=== PATIENT | female | born 1960 | race Hispanic/Latino ===

== ENCOUNTER → 2018-04-29 | Outpatient (CLI) | payer OTHER | END | disposition home or self-care (01) | LOC: SHCH 09:52 | PROVIDERS: ATTEND Internal Medicine Cardiovascular Disease | DX: R07.9 Chest pain, unspecified (principal); R43.9 Unspecified disturbances of smell and taste | CPT/HCPCS: 93306 ==

== ENCOUNTER 2023-12-19 14:34 | Inpatient (IN) | payer OTHER ==
[~2023-12-19] VITALS: Ht 160 cm; Wt 61.0 kg
[2023-12-19 17:56] LABS: BASOPHILS # (AUTO) 0.03 K/uL (0.00-0.20); BASOPHILS % (AUTO) 0.4 % (0.0-5.0); HEMATOCRIT 40.7 % (36-48); IMMATURE GRANULOCYTE ABSOLUTE 0.02 K/uL (0-1); LYMPHOCYTES # (AUTO) 1.3 K/uL (1.0-4.8); LYMPHOCYTES % (AUTO) 16.9 % (21.0-51.0); MEAN CORPUSCULAR HEMOGLOBIN 29.6 pg (27.0-33.0); MEAN CORPUSCULAR HGB CONC 34.6 g/dL (32.0-36.0); MEAN CORPUSCULAR VOLUME 85.5 fL (79-99); MONOCYTES # (AUTO) 0.3 K/uL (0.1-1.0); MONOCYTES % (AUTO) 3.9 % (3.0-13.0); NEUTROPHILS # (AUTO) 6.3 K/uL (1.8-7.7); NEUTROPHILS % (AUTO) 78.5 % (40.0-77.0); PLATELET COUNT (AUTO) 170 K/uL (130-400); RED BLOOD CELL COUNT(AUTO) 4.76 MIL/uL (4.00-5.50)
[2023-12-19 18:07] LABS: POTASSIUM 3.6 mmol/L (3.5-5.1)
[2023-12-19 18:09] LABS: INR 0.95 (0.85-1.15); PROTHROMBIN TIME 11.1 SEC (9.6-11.6)
[2023-12-19 18:10] LABS: PARTIAL THROMBOPLASTIN TIME 33.6 SEC (26.3-35.5)
[2023-12-19] MEDS: 0.9%NACL 1000ML 1,503 ML IV ONE (18:11)
[2023-12-19] MEDS: ACETAMINOPHEN 325 MG TAB PO ONE (18:12)
[2023-12-19 18:19] LABS: ALBUMIN 3.1 g/dL (3.5-5.0); BILIRUBIN,TOTAL 1.3 mg/dL (0.2-1.0); TOTAL PROTEIN, SERUM 7.9 g/dL (6.0-8.3)
[2023-12-19] MEDS: CEFTRIAXONE 2GM VIAL IVPB ONE (18:41)
[2023-12-19] MEDS ORDERED: MORPHINE 4 MG SYG IV PRN (19:30)
[2023-12-19] MEDS ORDERED: KCL 20 MEQ ERTAB PO PRN (19:30)
[2023-12-19] MEDS ORDERED: POTASSIUM CHLORIDE 20MEQ/100ML 100 ML IV PRN (19:30)
[2023-12-19] MEDS ORDERED: ACETAMINOPHEN 325 MG TAB PO PRN (19:30)
[2023-12-19 20:25] LABS: RAPID GROUP A STREP negative (NEGATIVE)
[2023-12-19 20:32] LABS: SARS-CoV-2, RNA, NAAT NEGATIVE SARS CoV-2 (NEGATIVE)
[2023-12-19 20:37] LABS: INFLUENZA TYPE A Negative For Type A (NEGATIVE)
[2023-12-19 20:49] LABS: APPEARANCE,URINE CLEAR (CLEAR); BILIRUBIN,URINE NEGATIVE (NEGATIVE); COLOR,URINE YELLOW (YELLOW); GLUCOSE, URINE (UA) 50 mg/dL (NEGATIVE); KETONES,URINE 10 mg/dL (NEGATIVE); LEUKOCYTE ESTERASE ,URINE 250 Leu/uL (NEGATIVE); NITRATE,URINE NEGATIVE (NEGATIVE); OCCULT BLOOD,URINE MODERATE (NEGATIVE); PH,URINE 5.5 (5.0-8.0); PROTEIN,URINE 70 mg/dL (NEGATIVE); UROBILINOGEN,URINE 0.2 mg/dL (0.2-1.0)
[2023-12-19 20:50] LABS: ADD UA MICROSCOPIC YES
[2023-12-19] MEDS: LACTATED RINGERS 1000ML 1,503 ML IV SCH (21:00)
[2023-12-19 21:16] LABS: INFLUENZA TYPE B Positive For Type B (NEGATIVE)
[2023-12-19 21:27] LABS: BACTERIA,URINE MOD /HPF (None Seen); MUCUS,URINE FEW LPF (None Seen); SQUAMOUS EPITHELIAL CELL,UR FEW /HPF (0-2); WBC,URINE 26-50 /HPF (0-1)
[2023-12-19] MEDS: INSULIN HUMULIN R 100 UNIT/ML 3ML SQ SCH (23:59)
[2023-12-20] VITALS (7 sets, daily range): BP systolic 112–140; BP diastolic 57–66; PULSE 63–91; RESP 16–19; O2SAT 96–97
[2023-12-20] MEDS: ZOSYN 3.375GM +NS 50ML IV SCH ×2 (00:03→09:25)
[2023-12-20] MEDS: OSELTAMIVIR PHOSPHATE 75 MG CAP PO SCH ×2 (00:03→09:27)
[2023-12-20] MEDS: ACETAMINOPHEN 325 MG TAB PO PRN (00:14)
[2023-12-20] MEDS: ONDANSETRON 4MG INJ IV PRN (01:18)
[2023-12-20 07:31] LABS: BASOPHILS # (AUTO) 0.03 K/uL (0.00-0.20); BASOPHILS % (AUTO) 0.4 % (0.0-5.0); EOSINOPHILS # (AUTO) 0.01 K/uL (0.00-0.70); EOSINOPHILS % (AUTO) 0.1 % (0.0-8.0); HEMATOCRIT 35.4 % (36-48); IMMATURE GRANULOCYTE ABSOLUTE 0.03 K/uL (0-1); LYMPHOCYTES # (AUTO) 1.2 K/uL (1.0-4.8); LYMPHOCYTES % (AUTO) 17.1 % (21.0-51.0); MEAN CORPUSCULAR HEMOGLOBIN 29.7 pg (27.0-33.0); MEAN CORPUSCULAR VOLUME 84.9 fL (79-99); MONOCYTES # (AUTO) 0.4 K/uL (0.1-1.0); MONOCYTES % (AUTO) 5.5 % (3.0-13.0); NEUTROPHILS # (AUTO) 5.1 K/uL (1.8-7.7); NEUTROPHILS % (AUTO) 76.5 % (40.0-77.0); PLATELET COUNT (AUTO) 142 K/uL (130-400); RED BLOOD CELL COUNT(AUTO) 4.17 MIL/uL (4.00-5.50); RED CELL DISTRIBUTION WIDTH 12.2 % (11.0-15.5); WHITE BLOOD COUNT (AUTO) 6.7 K/uL (4.8-10.8)
[2023-12-20 07:46] LABS: CREATININE 0.7 mg/dL (0.5-1.5); MAGNESIUM 2.1 mg/dL (1.80-2.40); POTASSIUM 3.5 mmol/L (3.5-5.1)
[2023-12-20 08:16] LABS: HEMOGLOBIN A1C 8.2 % (4.0-6.0)
[2023-12-20] MEDS: FAMOTIDINE 20MG TAB PO SCH (09:25)
[2023-12-20] MEDS: ENOXAPARIN SODIUM 40 MG/0.4 ML SYRINGE SQ SCH (09:26)
[2023-12-20] MEDS ORDERED: OMEP20CA12 PO (09:46)
[2023-12-20] MEDS ORDERED: GLIP5TAB PO (09:46)
[2023-12-20] MEDS ORDERED: METH-811 PO (09:46)
[2023-12-20] MEDS ORDERED: GABA-529 PO (09:46)
[2023-12-20] MEDS ORDERED: LISI30TA4 PO (09:46)
[2023-12-20] MEDS ORDERED: ATOR40TA71 PO (09:46)
[2023-12-20] MEDS ORDERED: GABA300S3 PO (09:46)
[2023-12-20] MEDS ORDERED: MELO5CAP3 PO (09:46)
[2023-12-20] MEDS ORDERED: SITA1TAB6 PO (09:46)
[2023-12-20] MEDS ORDERED: ASPI-1197 PO (09:46)
[2023-12-20] MEDS: 0.9%NACL 1000ML 1,000 ML IV SCH (10:23)
[2023-12-20 11:56] LABS: THYROID STIMULATING HORMONE 1.23 uIU/mL (0.36-3.74)
[2023-12-20] MEDS ORDERED: GUAIFENESIN-DM 200/20 MG 10 ML PO PRN (19:30)
[2023-12-20] MEDS: GABAPENTIN 300 MG CAPSULE PO SCH (20:33)
[2023-12-20] MEDS: SITAGLIPTIN PHOS PO SCH (20:33)
[2023-12-20] MEDS: METFORMIN HCL PO SCH (20:33)
[2023-12-20] MEDS: MORPHINE 2 MG SYG IV PRN (20:43)
[2023-12-20] MEDS: DOXYCYCLINE 100MG+NS 250ML 250 ML IV SCH (20:49)
[2023-12-21] VITALS (8 sets, daily range): BP systolic 108–128; BP diastolic 61–64; PULSE 70–94; RESP 17–21; TEMP 101.2; O2SAT 99
[2023-12-21] MEDS: KETOROLAC 15MG/ML VIAL (15MG/ML) IV ONE (03:55)
[2023-12-21 05:31] LABS: BASOPHILS # (AUTO) 0.02 K/uL (0.00-0.20); BASOPHILS % (AUTO) 0.3 % (0.0-5.0); HEMATOCRIT 31.6 % (36-48); IMMATURE GRANULOCYTE ABSOLUTE 0.03 K/uL (0-1); LYMPHOCYTES % (AUTO) 12.5 % (21.0-51.0); MEAN CORPUSCULAR HEMOGLOBIN 29.9 pg (27.0-33.0); MEAN CORPUSCULAR HGB CONC 35.4 g/dL (32.0-36.0); MEAN CORPUSCULAR VOLUME 84.3 fL (79-99); MONOCYTES # (AUTO) 0.3 K/uL (0.1-1.0); MONOCYTES % (AUTO) 4.3 % (3.0-13.0); NEUTROPHILS # (AUTO) 6.3 K/uL (1.8-7.7); NEUTROPHILS % (AUTO) 82.5 % (40.0-77.0); PLATELET COUNT (AUTO) 135 K/uL (130-400); RED BLOOD CELL COUNT(AUTO) 3.75 MIL/uL (4.00-5.50); RED CELL DISTRIBUTION WIDTH 12.4 % (11.0-15.5); WHITE BLOOD COUNT (AUTO) 7.7 K/uL (4.8-10.8)
[2023-12-21 05:39] LABS: ALBUMIN 2.4 g/dL (3.5-5.0); BILIRUBIN,TOTAL 0.9 mg/dL (0.2-1.0); CREATININE 0.8 mg/dL (0.5-1.5); MAGNESIUM 1.9 mg/dL (1.80-2.40); TOTAL PROTEIN, SERUM 6.3 g/dL (6.0-8.3)
[2023-12-21] MEDS: POTASSIUM CHLORIDE 10% ELIXIR 20 MEQ/15 ML UDCUP PO PRN (06:24)
[2023-12-21] MEDS: INSULIN GLARGINE 100 UNITS/ML 10 ML VIAL SQ SCH (09:00)
[2023-12-21] MEDS: ATORVASTATIN 40 MG TABLET PO SCH (10:27)
[2023-12-21] MEDS: ASPIRIN 81MG CHEW TAB PO SCH (10:28)
[2023-12-21] MEDS: MAGNESIUM 2GM PREMIX 50ML 50 ML IV PRN (15:05)
[2023-12-22] VITALS (8 sets, daily range): BP systolic 118–155; BP diastolic 60–78; PULSE 73–88; RESP 16–20; O2SAT 97–99
[2023-12-22] MEDS: ACETAMINOPHEN 325 MG TAB PO PRN (03:06)
[2023-12-22 04:02] LABS: BASOPHILS # (AUTO) 0.02 K/uL (0.00-0.20); BASOPHILS % (AUTO) 0.2 % (0.0-5.0); EOSINOPHILS # (AUTO) 0.02 K/uL (0.00-0.70); EOSINOPHILS % (AUTO) 0.2 % (0.0-8.0); HEMATOCRIT 29.7 % (36-48); IMMATURE GRANULOCYTE ABSOLUTE 0.06 K/uL (0-1); LYMPHOCYTES # (AUTO) 1.8 K/uL (1.0-4.8); LYMPHOCYTES % (AUTO) 21.2 % (21.0-51.0); MEAN CORPUSCULAR HEMOGLOBIN 29.8 pg (27.0-33.0); MEAN CORPUSCULAR HGB CONC 34.7 g/dL (32.0-36.0); MEAN CORPUSCULAR VOLUME 85.8 fL (79-99); MONOCYTES # (AUTO) 0.3 K/uL (0.1-1.0); MONOCYTES % (AUTO) 3.6 % (3.0-13.0); NEUTROPHILS # (AUTO) 6.2 K/uL (1.8-7.7); NEUTROPHILS % (AUTO) 74.1 % (40.0-77.0); PLATELET COUNT (AUTO) 134 K/uL (130-400); RED BLOOD CELL COUNT(AUTO) 3.46 MIL/uL (4.00-5.50); RED CELL DISTRIBUTION WIDTH 12.9 % (11.0-15.5); WHITE BLOOD COUNT (AUTO) 8.3 K/uL (4.8-10.8)
[2023-12-22 04:43] LABS: ALBUMIN 2.3 g/dL (3.5-5.0); BILIRUBIN,TOTAL 0.9 mg/dL (0.2-1.0); CREATININE 0.8 mg/dL (0.5-1.5); POTASSIUM 3.8 mmol/L (3.5-5.1); TOTAL PROTEIN, SERUM 6.1 g/dL (6.0-8.3)
[2023-12-22] MEDS: INSULIN HUMULIN R 100 UNIT/ML 3ML SQ SCH ×2 (06:08→21:53)
[2023-12-22 06:37] LABS: BAND NEUTROPHILS % (MANUAL) 5 % (0-2); LYMPHOCYTES % (MANUAL) 14 % (22-44); MONOCYTES % (MANUAL) 4 % (2-9); REACTIVE LYMPHOCYTES 1 % (0-0); SEGMENTED NEUTROPHILS % 76 % (40-70); TOTAL CELLS COUNTED 100
[2023-12-22 06:38] LABS: MAN.DIFF COMMENT-IMPRESSION MANUAL DIFFERENTIAL; WBC MORPHOLOGY IMMATURE GRAN 1+
[2023-12-22 06:39] LABS: PLATELET MORPHOLOGY COMMENT SLIGHTLY DECREASED
[2023-12-23 00:12] VITALS: BP 144/83; PULSE 78; RESP 18
[2023-12-23 04:35] VITALS: BP 141/72; PULSE 72; RESP 18
[2023-12-23 05:00] LABS: BASOPHILS # (AUTO) 0.02 K/uL (0.00-0.20); BASOPHILS % (AUTO) 0.3 % (0.0-5.0); EOSINOPHILS # (AUTO) 0.07 K/uL (0.00-0.70); HEMATOCRIT 30.8 % (36-48); IMMATURE GRANULOCYTE ABSOLUTE 0.04 K/uL (0-1); LYMPHOCYTES # (AUTO) 2.2 K/uL (1.0-4.8); LYMPHOCYTES % (AUTO) 31.4 % (21.0-51.0); MEAN CORPUSCULAR HEMOGLOBIN 29.7 pg (27.0-33.0); MEAN CORPUSCULAR HGB CONC 34.7 g/dL (32.0-36.0); MEAN CORPUSCULAR VOLUME 85.6 fL (79-99); MONOCYTES # (AUTO) 0.3 K/uL (0.1-1.0); MONOCYTES % (AUTO) 4.8 % (3.0-13.0); NEUTROPHILS # (AUTO) 4.3 K/uL (1.8-7.7); NEUTROPHILS % (AUTO) 61.9 % (40.0-77.0); PLATELET COUNT (AUTO) 173 K/uL (130-400); RED CELL DISTRIBUTION WIDTH 12.9 % (11.0-15.5); WHITE BLOOD COUNT (AUTO) 6.9 K/uL (4.8-10.8)
[2023-12-23 05:38] LABS: ALBUMIN 2.4 g/dL (3.5-5.0); BILIRUBIN,TOTAL 0.7 mg/dL (0.2-1.0); CREATININE 0.7 mg/dL (0.5-1.5); POTASSIUM 3.6 mmol/L (3.5-5.1); TOTAL PROTEIN, SERUM 6.4 g/dL (6.0-8.3)
[2023-12-23] MEDS: INSULIN HUMULIN R 100 UNIT/ML 3ML SQ SCH (06:50)
[2023-12-23 08:00] VITALS: BP 134/79; PULSE 65; RESP 17; O2SAT 98
[2023-12-23] MEDS ORDERED: OSEL75CA17 PO (09:44)
[2023-12-23] MEDS ORDERED: AMOX1TAB16 PO (09:44)
[2023-12-23] MEDS ORDERED: DOXY100T2 PO (09:44)
== END 2023-12-23 12:00 | disposition home or self-care (01) | DRG 720 ==
LOC: EDH 14:34 → EDHIP 14:35 → UNDOADMIN 19:02 → 4DH 12-20 14:39 → EDHIP 12-20 14:39
PROVIDERS: ADMIT Internal Medicine; ATTEND Internal Medicine
DX: A41.50 Gram-negative sepsis, unspecified (principal); E87.1 Hypo-osmolality and hyponatremia; E11.40 Type 2 diabetes mellitus with diabetic neuropathy, unspecified; E11.65 Type 2 diabetes mellitus with hyperglycemia; E86.0 Dehydration; E86.1 Hypovolemia; E87.6 Hypokalemia; I10 Essential (primary) hypertension; J10.1 Influenza due to other identified influenza virus with other respiratory manifestations; J40 Bronchitis, not specified as acute or chronic; N39.0 Urinary tract infection, site not specified; Z59.7 Insufficient social insurance and welfare support; Z75.3 Unavailability and inaccessibility of health-care facilities; Z79.4 Long term (current) use of insulin; Z79.84 Long term (current) use of oral hypoglycemic drugs; Z83.3 Family history of diabetes mellitus; Z86.19 Personal history of other infectious and parasitic diseases
CPT/HCPCS: 36415; 70450; 71045; 74176; 80048; 80053; 81001; 82550; 82948; 83036; 83605; 83735; 84100; 84145; 84443; 84484; 85025; 85610; 85730; 86140; 87040; 87088; 87635; 87804; 87880; 93306; 93356; G0378; J0696; J1650; J1815; J1885; J2270; J2405; J2543; J3475; J3490; J7030; A4600

== ENCOUNTER 2024-09-03 18:14 | Emergency (ER) | payer OTHER ==
[~2024-09-03] VITALS: Ht 157.5 cm; Wt 60.8 kg
[~2024-09-03 18:14] MED LIST: AMOX1TAB16 PO; ASPI-1197 PO; ATOR40TA71 PO; DOXY100T2 PO; GABA-529 PO; GABA300S3 PO; GLIP5TAB PO; LISI30TA4 PO; MELO5CAP3 PO; METH-811 PO; OMEP20CA12 PO; OSEL75CA17 PO; SITA1TAB6 PO
[2024-09-03] MEDS: ketOROlac 60 MG VIAL (30MG/ML) IM ONE (18:50)
[2024-09-03 18:54] VITALS: BP 168/77; PULSE 67; RESP 18; TEMP 98.6; O2SAT 99
[2024-09-03] MEDS ORDERED: IBUP-2077 PO (19:05)
== END 2024-09-03 19:10 | disposition home or self-care (01) ==
LOC: EDH 18:14
DX: S90.31XA Contusion of right foot, initial encounter (principal); I10 Essential (primary) hypertension; E78.00 Pure hypercholesterolemia, unspecified; E11.9 Type 2 diabetes mellitus without complications; Z79.899 Other long term (current) drug therapy; Z79.84 Long term (current) use of oral hypoglycemic drugs; Z79.82 Long term (current) use of aspirin; W20.8XXA Other cause of strike by thrown, projected or falling object, initial encounter; Y93.89 Activity, other specified; Y92.89 Other specified places as the place of occurrence of the external cause; Y99.8 Other external cause status
CPT/HCPCS: 99283; 73630; 96372; J1885